=== PATIENT | male | born 1985 | race Caucasian/White ===

== ENCOUNTER 2017-08-10 00:02 | Emergency (ER) | payer MEDICAID, OTHER ==
[2017-08-10 00:12] VITALS: RESP 16; TEMP 97.5
--- NOTE | 2017-08-10 00:15 | EDPHY ---
H & P Stated Complaint: CI Time Seen by Provider: 08/10/17 00:08 HPI/ROS: Chief Complaint: Alcohol intoxication, vomiting HPI: 32-year-old male who was found at the [facility] in intoxicated. Patient passed out drinking alcohol. Is unable to ambulate on their own. Patient brought in by EMS for further evaluation. No obvious signs of trauma per EMS. Remainder of history is unobtainable secondary to the patient's intoxication. Patient is not answering questions but shaking his head no when asked if he used any other substances. ROS: Unobtainable secondary to the patient's intoxication PMH: Unknown Medications: Unknown Allergies: Unknown Social History: Positive for alcohol Family History: non-contributory Physical Exam: Gen: Somnolent, responds to painful stimuli, maintaining airway, smells of alcohol and emesis HEENT: Atraumatic Nose: no epistaxis or deformity Eyes: Pupils dilated bilaterally, EOMI Mouth: Moist mucosa Neck: Supple, no step-offs or deformity Chest: Atraumatic, lungs clear to auscultation Heart: S1, S2 normal, no murmur Abd: Soft, non-tender, no guarding Back: Atraumatic Ext: no edema, atraumatic Skin: no rash Neuro: Sensation grossly intact, Strength 5/5 in bilateral upper and lower extremities - Personal History Current Tetanus/Diphtheria Vaccine: Unsure Current Tetanus Diphtheria and Acellular Pertussis (TDAP): Unsure - Medical/Surgical History Hx Asthma: No Hx Chronic Respiratory Disease: No Hx Diabetes: No Hx Cardiac Disease: No Hx Renal Disease: No Hx Cirrhosis: No Hx Alcoholism: No Hx HIV/AIDS: No Hx Splenectomy or Spleen Trauma: No Other PMH: ANXIETY - Social History Smoking Status: Never smoked Constitutional: Initial Vital Signs Temperature (C) 36.4 C 08/10/17 00:10 Heart Rate 91 08/10/17 00:10 Respiratory Rate 16 08/10/17 00:10 Blood Pressure 111/73 08/10/17 00:10 O2 Sat (%) 95 08/10/17 00:10 O2 Delivery Mode Room Air Allergies/Adverse Reactions: No Known Allergies Allergy (Verified 12/04/13 13:28) Home Medications: Medication Instructions Recorded Remerol 12/04/13 Medical Decision Making ED Course/Re-evaluation: Patient is now awake and appropriate. Ambulating unassisted to the bathroom. No current complaints. Patient admits that he has been drinking only alcohol tonight. Denies any other drug use. Patient is tolerating oral fluids. Patient is ready for discharge to the [facility]. Departure - Departure Disposition: Home, Routine, Self-Care Clinical Impression: Alcoholic intoxication Condition: Good Instructions: Alcohol Intoxication (ED) Referrals: NONE *PRIMARY CARE P,. [Primary Care Provider] - As per Instructions
[2017-08-10 02:50] VITALS: BP 109/72; PULSE 90; O2SAT 97
== END 2017-08-10 02:51 | disposition home or self-care (01) ==
LOC: EDUNIT#
DX: F10.129 Alcohol abuse with intoxication, unspecified (principal)